=== PATIENT | female | born 1990 | race Caucasian/White ===

== ENCOUNTER 2016-08-02 11:40 | Emergency (ER) | payer OTHER ==
[~2016-08-02] VITALS: Ht 170.2 cm; Wt 65.3 kg
[~2016-08-02 11:40] MED LIST: ATIVAN0.5 MG PO
[2016-08-02 13:36] LABS: MCH 28.8 PG (29.0-34.0); MCHC 33.2 G/DL (30.0-36.0); MCV 86.5 FL (83-99); MEAN PLAT.VOLUME 10.1 uM^3 (9.5-12.4); PLATELET COUNT 239 K/uL (156-360); RBC DIS.WIDTH-CV 13.5 % (11.8-14.6); RBC DIS.WIDTH-SD 42.5 % (39-53); RED BLOOD COUNT 3.93 M/uL (3.80-5.20); WHITE BLOOD COUNT 8.4 K/uL (4.1-10.2)
[2016-08-02 13:44] LABS: CHLORIDE 106 mEq/L (99-109); SODIUM 139 mEq/L (136-147)
[2016-08-02 13:46] LABS: GLUCOSE 87 mg/dL (70-99)
[2016-08-02 13:47] LABS: ANION GAP 8 MEQ/L (2-14)
[2016-08-02 13:48] LABS: TOTAL BILIRUBIN 0.7 mg/dL (0.0-1.0)
[2016-08-02 13:50] LABS: ALKALINE PHOSPHATASE 29 IU/L (3-129); GFR ESTIMATE (CALCULATED) > 59 mL/min/
[2016-08-02 13:51] LABS: UREA NITROGEN (BUN) 12 mg/dL (9-23)
[2016-08-02] MEDS ORDERED: PREDNISONE20 MG PO (14:14)
[2016-08-02] MEDS ORDERED: FLEXERIL10 MG PO (14:14)
[2016-08-02] MEDS ORDERED: MOTRIN800 MG PO (14:14)
[2016-08-02 14:32] VITALS: BP 113/55
== END 2016-08-02 14:33 | disposition home or self-care (01) ==
LOC: EME 11:40
PROVIDERS: Nurse Practitioner Family
DX: R51 Headache (principal); M25.511 Pain in right shoulder; M25.512 Pain in left shoulder; V49.40XA Driver injured in collision with unspecified motor vehicles in traffic accident, initial encounter
CPT/HCPCS: 80053; 85027; 99281; 99284; J7512